=== PATIENT | male | born 1950 | race Caucasian/White ===

== ENCOUNTER 2020-02-23 07:38 | Inpatient (IN) ==
[2020-02-23] MEDS ORDERED: SODIUM CHLORIDE 0.9% 1,000 ML IV STA (08:05)
[2020-02-23] MEDS ORDERED: LEVOFLOXACIN INJ 500 MG in PREMIX 1 EACH IV STA (08:05)
[2020-02-23 08:22] LABS: Basophils # 0.1 10*3/uL (0.0-0.2); Basophils % 0.2 % (0.0-0.8); Eosinophils # 0.1 10*3/uL (0.0-0.87); Eosinophils % 0.5 % (0.00-10.9); Hematocrit 30.1 VOL% (42.0-52.0); Hemoglobin 9.5 GM/DL (14.0-18.0); Immature Granulocytes % 0.8 %; Immature Granulocytes Absolute 0.18 #; Lymphocytes # 0.7 10*3/uL (1.4-4.0); Lymphocytes % 3.3 % (21.2-54.2); Mean Corpuscular HGB Conc 31.6 GM/DL (32-36); Mean Corpuscular Volume 90.1 FL (87-102); Mean Platelet Volume 9.3 FL (9.6-12.0); Monocytes % 5.4 % (1.7-12.7); Neutrophils % 89.8 % (38.7-73.9); Platelet Count 376 T/CUMM (130-400); Red Blood Count 3.34 MC/CUMM (3.8-5.5); Red Cell Distribution Width 13.9 % (9.3-17.3); White Blood Count 21.5 T/CUMM (4-12)
[2020-02-23 08:40] LABS: Band Neutrophils 4 % (0-10); Lymphocytes 4 % (20-55); Platelet Estimate Adequate; Segmented Neutrophils 87 % (50-85); Total Cells Counted 100
[2020-02-23 08:43] LABS: Albumin 2.4 G/DL (3.4-5.0); Bilirubin,Total 0.6 MG/DL (0.2-1.0); Calcium 8.5 MG/DL (8.5-10.1); Osmolality,Calculated 273.7 MOS/KG (273-304); Total Protein 7.9 G/DL (6.4-8.3)
[2020-02-23] MEDS ORDERED: VANCOMYCIN INJ 1,250 MG in SODIUM CHLORIDE 0.9% 250 ML IV STA (08:45)
[2020-02-23] MEDS ORDERED: DEXTROSE 10% 250 ML BAG IV PRN (09:02)
[2020-02-23] MEDS ORDERED: ACETAMINOPHEN 325 MG TABLET PO PRN (09:02)
[2020-02-23] MEDS ORDERED: GLUCAGON 1 MG VIAL IM PRN (09:02)
[2020-02-23] MEDS ORDERED: ONDANSETRON 4 MG/2 ML VIAL IV PRN (09:02)
[2020-02-23] MEDS ORDERED: LEVOFLOXACIN INJ 500 MG in PREMIX 1 EACH IV SCH (09:30)
[2020-02-23 10:30] LABS: Apearance,Urine Slightly Hazy (Clear); Bacteria,Urine Occasional /HPF (Few); Bilirubin,Urine Negative (Negative); Blood, Urine Negative (Negative); Glucose,Urine (UA) Negative (Negative); Hyaline Casts,Urine 3 /LPF (0-3); Ketones,Urine Negative (Negative); Mucus,Urine Occasional /LPF (Occasional); Nitrite,Urine Negative (Negative); Protein,Urine Negative; RBC,Urine 1 /HPF (0-4); Sperm,Urine Few /HPF (Negative); Squamous Epithelial Cell,Urine Occasional /HPF (0-10); Urine Color Yellow (Yellow); Urine Urobilinogen < 2.0 EU/DL (0.2-1.0); WBC,Urine 1 /HPF (0-6)
[2020-02-23] MEDS ORDERED: INSULIN LISPRO 100 UNIT/ML SUBCUT SCH (11:30)
[2020-02-23] MEDS ORDERED: cefTRIAXone 1,000 MG VIAL ONE (11:59)
[2020-02-23] MEDS: cefTRIAXone 1,000 MG in SYRINGE 1 EACH IV SCH (12:30)
[2020-02-23] MEDS: ENOXAPARIN 30 MG/0.3 ML SYRINGE SUBCUT SCH (12:30)
[2020-02-23] MEDS: SODIUM CHLORIDE 0.9% 1,000 ML IV SCH ×2 (12:40→20:23)
[2020-02-23] MEDS ORDERED: VANCOMYCIN INJ 1,500 MG in SODIUM CHLORIDE 0.9% 500 ML IV PRN (12:59)
[2020-02-23] MEDS ORDERED: ALUMINUM/MAGNES/SIMETH MAX STR 30 ML UDCUP PO PRN (13:26)
[2020-02-23] MEDS ORDERED: PANTOPRAZOLE 40 MG TABLET PO ONE (14:03)
[2020-02-23] MEDS ORDERED: AZITHROMYCIN INJ 500 MG in SODIUM CHLORIDE 0.9% 250 ML IV ONE (14:04)
[2020-02-23] MEDS ORDERED: AZITHROMYCIN 250 MG TABLET PO ONE (14:30)
[2020-02-23] MEDS: HYDROXYCHLOROQUINE 200 MG TABLET PO SCH (17:44)
[2020-02-23] MEDS: ZINC SULFATE 220 MG CAPSULE PO SCH (17:44)
[2020-02-24] MEDS: SODIUM CHLORIDE 0.9% 1,000 ML IV SCH ×4 (04:23→17:23)
[2020-02-24] MEDS: HYDROXYCHLOROQUINE 200 MG TABLET PO SCH ×2 (05:50→18:47)
[2020-02-24 06:54] LABS: Basophils % 0.2 % (0.0-0.8); Eosinophils # 0.2 10*3/uL (0.0-0.87); Eosinophils % 0.8 % (0.00-10.9); Hematocrit 23.4 VOL% (42.0-52.0); Immature Granulocytes % 0.5 %; Immature Granulocytes Absolute 0.09 #; Lymphocytes # 1.8 10*3/uL (1.4-4.0); Lymphocytes % 9.4 % (21.2-54.2); Mean Corpuscular HGB Conc 32.1 GM/DL (32-36); Mean Corpuscular Volume 89.3 FL (87-102); Mean Platelet Volume 9.8 FL (9.6-12.0); Monocytes % 6.2 % (1.7-12.7); Neutrophils % 82.9 % (38.7-73.9); Platelet Count 301 T/CUMM (130-400); Red Blood Count 2.62 MC/CUMM (3.8-5.5); Red Cell Distribution Width 14.1 % (9.3-17.3); White Blood Count 18.8 T/CUMM (4-12)
[2020-02-24 06:55] LABS: Hemoglobin 7.5 GM/DL (14.0-18.0)
[2020-02-24 07:04] LABS: Calcium 8.3 MG/DL (8.5-10.1); Osmolality,Calculated 288.4 MOS/KG (273-304)
[2020-02-24] MEDS: AZITHROMYCIN 250 MG TABLET PO SCH (08:34)
[2020-02-24] MEDS: PANTOPRAZOLE 40 MG TABLET PO SCH (08:34)
[2020-02-24] MEDS: predniSONE 5 MG TABLET PO SCH (08:34)
[2020-02-24] MEDS ORDERED: PANTOPRAZOLE 40 MG TABLET PO SCH (09:00)
[2020-02-24 10:41] LABS: Hematocrit 27.4 VOL% (42.0-52.0); Hemoglobin 8.6 GM/DL (14.0-18.0)
[2020-02-24] MEDS: cefTRIAXone 1,000 MG in SYRINGE 1 EACH IV SCH (11:18)
[2020-02-24] MEDS: ENOXAPARIN 30 MG/0.3 ML SYRINGE SUBCUT SCH (11:44)
[2020-02-24] MEDS ORDERED: VANCOMYCIN INJ 1,500 MG in SODIUM CHLORIDE 0.9% 500 ML IV SCH (12:00)
[2020-02-24] MEDS: GABAPENTIN 300 MG CAPSULE PO SCH ×2 (13:59→20:30)
[2020-02-24] MEDS: LEVOTHYROXINE 75 MCG TABLET PO SCH (13:59)
[2020-02-24] MEDS ORDERED: AZITHROMYCIN INJ 250 MG in SODIUM CHLORIDE 0.9% 250 ML IV SCH (14:30)
[2020-02-25] MEDS: HYDROXYCHLOROQUINE 200 MG TABLET PO SCH ×2 (06:37→17:28)
[2020-02-25] MEDS: SODIUM CHLORIDE 0.9% 1,000 ML IV SCH ×3 (06:37→22:46)
[2020-02-25 06:50] LABS: Basophils # 0.1 10*3/uL (0.0-0.2); Basophils % 0.3 % (0.0-0.8); Eosinophils # 0.2 10*3/uL (0.0-0.87); Eosinophils % 1.1 % (0.00-10.9); Hematocrit 25.7 VOL% (42.0-52.0); Hemoglobin 7.9 GM/DL (14.0-18.0); Immature Granulocytes % 0.5 %; Immature Granulocytes Absolute 0.08 #; Lymphocytes # 2.3 10*3/uL (1.4-4.0); Lymphocytes % 13.3 % (21.2-54.2); Mean Corpuscular HGB Conc 30.7 GM/DL (32-36); Mean Corpuscular Volume 92.1 FL (87-102); Mean Platelet Volume 10.1 FL (9.6-12.0); Monocytes % 6.9 % (1.7-12.7); Neutrophils % 77.9 % (38.7-73.9); Platelet Count 321 T/CUMM (130-400); Red Blood Count 2.79 MC/CUMM (3.8-5.5)
[2020-02-25 07:08] LABS: Albumin 2.2 G/DL (3.4-5.0); Bilirubin,Total 0.6 MG/DL (0.2-1.0); Calcium 8.5 MG/DL (8.5-10.1); Total Protein 7.2 G/DL (6.4-8.3)
[2020-02-25] MEDS ORDERED: DIPHENOXYLATE/ATROPINE 2.5-0.025 MG TABLET PO PRN (08:11)
[2020-02-25] MEDS: AZITHROMYCIN 250 MG TABLET PO SCH (10:34)
[2020-02-25] MEDS: LEVOTHYROXINE 75 MCG TABLET PO SCH (10:35)
[2020-02-25] MEDS: PANTOPRAZOLE 40 MG TABLET PO SCH (10:35)
[2020-02-25] MEDS: predniSONE 5 MG TABLET PO SCH (10:36)
[2020-02-25] MEDS: GABAPENTIN 300 MG CAPSULE PO SCH ×3 (10:36→20:41)
[2020-02-25] MEDS: LEFLUNOMIDE 10 MG TABLET PO SCH (10:41)
[2020-02-25] MEDS: cefTRIAXone 1,000 MG in SYRINGE 1 EACH IV SCH (10:56)
[2020-02-25] MEDS: ENOXAPARIN 30 MG/0.3 ML SYRINGE SUBCUT SCH (13:32)
[2020-02-25] MEDS: ZINC SULFATE 220 MG CAPSULE PO SCH (17:28)
[2020-02-26] MEDS: HYDROXYCHLOROQUINE 200 MG TABLET PO SCH (05:41)
[2020-02-26 06:03] LABS: Basophils % 0.2 % (0.0-0.8); Eosinophils # 0.2 10*3/uL (0.0-0.87); Eosinophils % 1.5 % (0.00-10.9); Hematocrit 23.4 VOL% (42.0-52.0); Hemoglobin 7.2 GM/DL (14.0-18.0); Immature Granulocytes % 0.4 %; Immature Granulocytes Absolute 0.04 #; Lymphocytes % 18.8 % (21.2-54.2); Mean Corpuscular HGB Conc 30.8 GM/DL (32-36); Mean Corpuscular Volume 92.5 FL (87-102); Mean Platelet Volume 9.9 FL (9.6-12.0); Monocytes % 7.6 % (1.7-12.7); Neutrophils % 71.5 % (38.7-73.9); Platelet Count 296 T/CUMM (130-400); Red Blood Count 2.53 MC/CUMM (3.8-5.5); Red Cell Distribution Width 14.2 % (9.3-17.3); White Blood Count 10.8 T/CUMM (4-12)
[2020-02-26] MEDS ORDERED: CYCLOBENZAPRINE 10 MG TABLET PO PRN (08:01)
[2020-02-26] MEDS: LEFLUNOMIDE 10 MG TABLET PO SCH (10:06)
[2020-02-26] MEDS: GABAPENTIN 300 MG CAPSULE PO SCH ×2 (10:07→15:44)
[2020-02-26] MEDS: predniSONE 5 MG TABLET PO SCH (10:07)
[2020-02-26] MEDS: LEVOTHYROXINE 75 MCG TABLET PO SCH (10:07)
[2020-02-26] MEDS: PANTOPRAZOLE 40 MG TABLET PO SCH (10:07)
[2020-02-26] MEDS: cefTRIAXone 1,000 MG in SYRINGE 1 EACH IV SCH (10:08)
[2020-02-26] MEDS: AZITHROMYCIN 250 MG TABLET PO SCH (10:08)
[2020-02-26] MEDS: SODIUM CHLORIDE 0.9% 1,000 ML IV SCH ×3 (10:10→15:44)
[2020-02-26 12:37] LABS: Hematocrit 24.4 VOL% (42.0-52.0); Hemoglobin 7.4 GM/DL (14.0-18.0)
[2020-02-26 13:10] VITALS: BP 138/87
[2020-02-26] MEDS ORDERED: ZALEPLON 5 MG CAPSULE PO SCH (21:00)
== END 2020-02-26 15:32 | disposition home or self-care (01) | DRG 193 ==
LOC: EDUNIT# → EDBD → N.ED 07:38 → N.EDINP 09:02 → N.CC 11:55 → N.2E 02-24 12:15 → N.SDSINP 02-24 12:15
PROVIDERS: ADMIT Family Medicine; ATTEND Family Medicine

== ENCOUNTER 2022-11-03 12:00 | Inpatient (IN) ==
[2022-11-03 12:19] LABS: Basophils % 0.1 % (0.0-0.8); Hematocrit 29.5 VOL% (42.0-52.0); Immature Granulocytes % 0.9 %; Immature Granulocytes Absolute 0.16 #; Lymphocytes # 1.3 10*3/uL (1.4-4.0); Lymphocytes % 6.9 % (21.2-54.2); Mean Corpuscular HGB Conc 30.5 GM/DL (32-36); Mean Platelet Volume 9.8 FL (9.6-12.0); Monocytes # 0.8 10*3/uL (0.11-0.8); Monocytes % 4.1 % (1.7-12.7); Platelet Count 421 T/CUMM (130-400); Red Blood Count 3.01 MC/CUMM (3.8-5.5); Red Cell Distribution Width 13.9 % (9.3-17.3); White Blood Count 18.8 T/CUMM (4-12)
[2022-11-03] MEDS ORDERED: PANTOPRAZOLE 40 MG VIAL IV STA (12:27)
[2022-11-03] MEDS ORDERED: SODIUM CHLORIDE 0.9% 1,000 ML IV STA (12:27)
[2022-11-03 12:58] LABS: Albumin 2.5 G/DL (3.4-5.0); Bilirubin,Total 0.6 MG/DL (0.20-1.00); Calcium 9.7 MG/DL (8.5-10.1); Potassium 5.2 MMOL/L (3.5-5.1); Total Protein 5.9 G/DL (6.4-8.2)
[2022-11-03] MEDS ORDERED: ONDANSETRON 4 MG/2 ML VIAL IV PRN (14:21)
[2022-11-03] MEDS ORDERED: SODIUM CHLORIDE 0.9% 1,000 ML IV SCH (15:30)
[2022-11-03] MEDS: SODIUM CHLORIDE 0.9% 1,000 ML IV SCH ×2 (15:40→23:28)
[2022-11-03 16:02] LABS: Hematocrit 33.4 VOL% (42.0-52.0); Hemoglobin 10.3 GM/DL (14.0-18.0)
[2022-11-03] MEDS ORDERED: LIDOCAINE 2% 5 ML VIAL ONE (16:23)
[2022-11-03] MEDS ORDERED: propofoL 200 MG/20 ML VIAL IV ONE (16:23)
[2022-11-03 17:47] LABS: Hematocrit 35.2 VOL% (42.0-52.0)
[2022-11-03 18:14] LABS: Calcium 9.6 MG/DL (8.5-10.1); Potassium 5.1 MMOL/L (3.5-5.1)
[2022-11-03] MEDS: PANTOPRAZOLE 40 MG VIAL IV SCH (20:56)
[2022-11-04] MEDS: SODIUM CHLORIDE 0.9% 1,000 ML IV SCH ×3 (00:57→21:00)
[2022-11-04 02:29] LABS: Hematocrit 31.9 VOL% (42.0-52.0); Hemoglobin 10.1 GM/DL (14.0-18.0)
[2022-11-04 04:30] LABS: Basophils % 0.2 % (0.0-0.8); Eosinophils # 0.1 10*3/uL (0.0-0.87); Eosinophils % 0.3 % (0.00-10.9); Hematocrit 30.5 VOL% (42.0-52.0); Hemoglobin 9.6 GM/DL (14.0-18.0); Immature Granulocytes % 0.4 %; Immature Granulocytes Absolute 0.07 #; Lymphocytes # 1.1 10*3/uL (1.4-4.0); Mean Corpuscular HGB Conc 31.5 GM/DL (32-36); Mean Platelet Volume 10.4 FL (9.6-12.0); Monocytes # 1.6 10*3/uL (0.11-0.8); Monocytes % 9.1 % (1.7-12.7); Red Blood Count 3.21 MC/CUMM (3.8-5.5); Red Cell Distribution Width 14.1 % (9.3-17.3); White Blood Count 17.9 T/CUMM (4-12)
[2022-11-04 04:31] LABS: Platelet Count 284 T/CUMM (130-400)
[2022-11-04] MEDS ORDERED: SODIUM CHLORIDE 0.9% 500 ML IV ONE (04:32)
[2022-11-04 04:41] LABS: INR 1.1; PT Patient Result 12.1 SECS (10.1-12.1)
[2022-11-04 04:45] LABS: Albumin 2.5 G/DL (3.4-5.0); Bilirubin,Total 0.5 MG/DL (0.20-1.00); Calcium 9.1 MG/DL (8.5-10.1); Osmolality,Calculated 297.5 MOS/KG (273-304); Potassium 4.6 MMOL/L (3.5-5.1); Total Protein 6.7 G/DL (6.4-8.2)
[2022-11-04 04:50] LABS: Band Neutrophils 12 % (0-10); Lymphocytes 7 % (20-55); Total Cells Counted 100
[2022-11-04 04:51] LABS: Macrocytosis Slight; Polychromasia Slight
[2022-11-04 04:52] LABS: Ovalocytes Slight
[2022-11-04] MEDS: LEVOTHYROXINE 75 MCG TABLET PO SCH (06:03)
[2022-11-04] MEDS ORDERED: CYCLOBENZAPRINE 10 MG TABLET PO PRN (08:09)
[2022-11-04] MEDS: FERROUS SULFATE 325 MG TABLET PO SCH ×2 (08:52→21:01)
[2022-11-04] MEDS: PREGABALIN 75 MG CAPSULE PO SCH ×2 (08:52→21:01)
[2022-11-04] MEDS: GABAPENTIN 300 MG CAPSULE PO SCH ×3 (08:52→21:01)
[2022-11-04] MEDS: PANTOPRAZOLE 40 MG VIAL IV SCH ×2 (08:53→21:02)
[2022-11-04 09:36] LABS: Free T4 (Free Thyroxine) 1.05 NG/DL (0.76-1.46)
[2022-11-04] MEDS ORDERED: LEVOFLOXACIN INJ 750 MG/150 ML PREMIX IV SCH (11:00)
[2022-11-04] MEDS ORDERED: ZALEPLON 5 MG CAPSULE PO PRN (21:00)
[2022-11-05 05:22] LABS: Basophils % 0.1 % (0.0-0.8); Eosinophils % 0.1 % (0.00-10.9); Hematocrit 26.3 VOL% (42.0-52.0); Hemoglobin 8.1 GM/DL (14.0-18.0); Immature Granulocytes % 0.6 %; Immature Granulocytes Absolute 0.08 #; Lymphocytes # 0.8 10*3/uL (1.4-4.0); Lymphocytes % 5.4 % (21.2-54.2); Mean Corpuscular HGB Conc 30.8 GM/DL (32-36); Mean Corpuscular Volume 98.5 FL (87-102); Mean Platelet Volume 10.1 FL (9.6-12.0); Monocytes # 1.6 10*3/uL (0.11-0.8); Monocytes % 11.3 % (1.7-12.7); Neutrophils % 82.5 % (38.7-73.9); Platelet Count 290 T/CUMM (130-400); Red Blood Count 2.67 MC/CUMM (3.8-5.5); Red Cell Distribution Width 14.2 % (9.3-17.3)
[2022-11-05 05:38] LABS: Osmolality,Calculated 296.5 MOS/KG (273-304); Potassium 4.2 MMOL/L (3.5-5.1)
[2022-11-05] MEDS: LEVOTHYROXINE 75 MCG TABLET PO SCH (05:55)
[2022-11-05] MEDS: SODIUM CHLORIDE 0.9% 1,000 ML IV SCH ×2 (05:57→18:03)
[2022-11-05 06:29] LABS: Band Neutrophils 13 % (0-10); Lymphocytes 5 % (20-55); Total Cells Counted 100
[2022-11-05 06:30] LABS: Hypochromia Slight; Macrocytosis Slight; Platelet Estimate Normal; Polychromasia Slight
[2022-11-05] MEDS ORDERED: OLMESARTAN 20 MG TABLET PO SCH (09:00)
[2022-11-05] MEDS: LEVOFLOXACIN INJ 750 MG/150 ML PREMIX IV SCH (09:35)
[2022-11-05] MEDS: FERROUS SULFATE 325 MG TABLET PO SCH ×2 (09:35→21:42)
[2022-11-05] MEDS: PREGABALIN 75 MG CAPSULE PO SCH ×2 (09:35→21:42)
[2022-11-05] MEDS: predniSONE 5 MG TABLET PO SCH (09:35)
[2022-11-05] MEDS: GABAPENTIN 300 MG CAPSULE PO SCH ×3 (09:35→21:42)
[2022-11-05] MEDS: NON-FORMULARY MEDICATION (Upadacitinib [Rinvoq] 15 mg Tablet Extended Release 24 Hr) PO SCH (09:36)
[2022-11-05] MEDS: PANTOPRAZOLE 40 MG TABLET PO SCH ×2 (09:36→21:42)
[2022-11-06] MEDS: SODIUM CHLORIDE 0.9% 1,000 ML IV SCH ×2 (03:10→15:35)
[2022-11-06] MEDS: LEVOTHYROXINE 75 MCG TABLET PO SCH (05:49)
[2022-11-06] MEDS: FERROUS SULFATE 325 MG TABLET PO SCH ×2 (09:19→20:35)
[2022-11-06] MEDS: predniSONE 5 MG TABLET PO SCH (09:19)
[2022-11-06] MEDS: PREGABALIN 75 MG CAPSULE PO SCH ×2 (09:19→20:35)
[2022-11-06] MEDS: GABAPENTIN 300 MG CAPSULE PO SCH ×3 (09:19→20:35)
[2022-11-06] MEDS: PANTOPRAZOLE 40 MG TABLET PO SCH ×2 (09:19→20:35)
[2022-11-06] MEDS: NON-FORMULARY MEDICATION (Upadacitinib [Rinvoq] 15 mg Tablet Extended Release 24 Hr) PO SCH (09:19)
[2022-11-06] MEDS: LEVOFLOXACIN INJ 750 MG/150 ML PREMIX IV SCH (09:20)
[2022-11-06 11:01] LABS: Basophils % 0.2 % (0.0-0.8); Eosinophils # 0.1 10*3/uL (0.0-0.87); Eosinophils % 0.5 % (0.00-10.9); Hematocrit 23.5 VOL% (42.0-52.0); Hemoglobin 7.1 GM/DL (14.0-18.0); Immature Granulocytes % 1.2 %; Immature Granulocytes Absolute 0.13 #; Lymphocytes # 0.9 10*3/uL (1.4-4.0); Lymphocytes % 7.8 % (21.2-54.2); Mean Corpuscular HGB Conc 30.2 GM/DL (32-36); Mean Corpuscular Volume 98.3 FL (87-102); Mean Platelet Volume 10.5 FL (9.6-12.0); Monocytes # 0.9 10*3/uL (0.11-0.8); Monocytes % 8.1 % (1.7-12.7); Neutrophils % 82.2 % (38.7-73.9); Platelet Count 299 T/CUMM (130-400); Red Blood Count 2.39 MC/CUMM (3.8-5.5); Red Cell Distribution Width 14.3 % (9.3-17.3); White Blood Count 11.3 T/CUMM (4-12)
[2022-11-06 11:28] LABS: Calcium 8.3 MG/DL (8.5-10.1); Potassium 3.8 MMOL/L (3.5-5.1)
[2022-11-07] MEDS: SODIUM CHLORIDE 0.9% 1,000 ML IV SCH ×3 (01:16→21:28)
[2022-11-07 05:31] LABS: Basophils % 0.2 % (0.0-0.8); Eosinophils # 0.1 10*3/uL (0.0-0.87); Eosinophils % 1.1 % (0.00-10.9); Hematocrit 23.1 VOL% (42.0-52.0); Immature Granulocytes % 2.4 %; Immature Granulocytes Absolute 0.24 #; Lymphocytes # 1.1 10*3/uL (1.4-4.0); Lymphocytes % 10.9 % (21.2-54.2); Mean Corpuscular HGB Conc 30.3 GM/DL (32-36); Mean Corpuscular Volume 97.1 FL (87-102); Mean Platelet Volume 10.2 FL (9.6-12.0); Monocytes % 9.9 % (1.7-12.7); Neutrophils % 75.5 % (38.7-73.9); Platelet Count 290 T/CUMM (130-400); Red Blood Count 2.38 MC/CUMM (3.8-5.5); Red Cell Distribution Width 14.2 % (9.3-17.3); White Blood Count 10.1 T/CUMM (4-12)
[2022-11-07 05:45] LABS: Calcium 8.5 MG/DL (8.5-10.1); Osmolality,Calculated 290.8 MOS/KG (273-304); Potassium 3.8 MMOL/L (3.5-5.1)
[2022-11-07] MEDS: LEVOTHYROXINE 75 MCG TABLET PO SCH (05:52)
[2022-11-07] MEDS ORDERED: SODIUM CHLORIDE 0.9% 1,000 ML IV PRN (08:24)
[2022-11-07] MEDS: GABAPENTIN 300 MG CAPSULE PO SCH ×3 (09:10→21:28)
[2022-11-07] MEDS: FERROUS SULFATE 325 MG TABLET PO SCH ×2 (09:10→21:28)
[2022-11-07] MEDS: PREGABALIN 75 MG CAPSULE PO SCH ×2 (09:10→21:28)
[2022-11-07] MEDS: predniSONE 5 MG TABLET PO SCH (09:10)
[2022-11-07] MEDS: PANTOPRAZOLE 40 MG TABLET PO SCH ×2 (09:10→21:28)
[2022-11-07] MEDS: LEVOFLOXACIN INJ 750 MG/150 ML PREMIX IV SCH (09:14)
[2022-11-07] MEDS: NON-FORMULARY MEDICATION (Upadacitinib [Rinvoq] 15 mg Tablet Extended Release 24 Hr) PO SCH (09:19)
[2022-11-07] MEDS ORDERED: FUROSEMIDE 40 MG/4 ML VIAL IV ONE (10:30)
[2022-11-08 00:27] LABS: Hemoglobin 9.6 GM/DL (14.0-18.0)
[2022-11-08] MEDS: LEVOTHYROXINE 75 MCG TABLET PO SCH (06:15)
[2022-11-08 06:22] LABS: Basophils % 0.3 % (0.0-0.8); Eosinophils # 0.1 10*3/uL (0.0-0.87); Hematocrit 28.1 VOL% (42.0-52.0); Hemoglobin 8.8 GM/DL (14.0-18.0); Immature Granulocytes % 6.1 %; Immature Granulocytes Absolute 0.56 #; Lymphocytes # 1.1 10*3/uL (1.4-4.0); Lymphocytes % 12.5 % (21.2-54.2); Mean Corpuscular HGB Conc 31.3 GM/DL (32-36); Mean Corpuscular Volume 94.9 FL (87-102); Mean Platelet Volume 10.1 FL (9.6-12.0); Monocytes # 1.1 10*3/uL (0.11-0.8); Monocytes % 11.7 % (1.7-12.7); NRBC # 0.02 10*3/uL; Neutrophils % 68.4 % (38.7-73.9); Platelet Count 271 T/CUMM (130-400); Red Blood Count 2.96 MC/CUMM (3.8-5.5); Red Cell Distribution Width 14.9 % (9.3-17.3); White Blood Count 9.2 T/CUMM (4-12)
[2022-11-08 06:43] LABS: Eosinophils 2 % (0-10); Hypochromia Slight; Lymphocytes 14 % (20-55); Platelet Estimate Adequate; Total Cells Counted 100
[2022-11-08] MEDS: SODIUM CHLORIDE 0.9% 1,000 ML IV SCH (07:08)
[2022-11-08] MEDS: GABAPENTIN 300 MG CAPSULE PO SCH (08:18)
[2022-11-08] MEDS: predniSONE 5 MG TABLET PO SCH (08:18)
[2022-11-08] MEDS: FERROUS SULFATE 325 MG TABLET PO SCH (08:18)
[2022-11-08] MEDS: PANTOPRAZOLE 40 MG TABLET PO SCH (08:18)
[2022-11-08] MEDS: NON-FORMULARY MEDICATION (Upadacitinib [Rinvoq] 15 mg Tablet Extended Release 24 Hr) PO SCH (08:19)
[2022-11-08] MEDS: LEVOFLOXACIN INJ 750 MG/150 ML PREMIX IV SCH (08:19)
[2022-11-08] MEDS: PREGABALIN 75 MG CAPSULE PO SCH (08:19)
[2022-11-08 09:15] VITALS: BP 153/77
== END 2022-11-08 12:11 | disposition home or self-care (01) | DRG 377 ==
LOC: EDUNIT# → EDBD → N.ED 12:00 → SUATTDRO 14:49 → N.EDINP 14:57 → N.CC 14:59 → N.5E 11-04 12:53
PROVIDERS: ADMIT Family Medicine; ATTEND Family Medicine